=== PATIENT | male | born 1990 | race Caucasian/White ===

== ENCOUNTER 2017-03-08 01:38 | Emergency (ER) | payer OTHER, BC ==
--- NOTE | 2017-03-08 22:59 | ER ---
ADMIT: 03/08/2017 RM/LOC: ER [facility] MR#: [id number] [id number] [place], [place] [id number] LATA SHYA S JACOB [address], [place] [id number] Emergency Room Report SEX: M AGE: 26 : 1990 DATE: 03/08/2017 TIME: 0138 hours. Please refer to my T-sheet for complete H and P. HISTORY OF PRESENT ILLNESS: Briefly, the patient is a 26-year-old, who said yesterday hurt his arm while at work, works at [employer] He does a lot of pulling where it has been hurting up in his left biceps area. No other complaints. PHYSICAL EXAMINATION: He has pain over the insertion of his proximal biceps. No evidence of rupture. Neurovascularly intact distally. EMERGENCY DEPARTMENT COURSE: I placed him in a sling. I had a long discussion. He was ready for discharge. ASSESSMENT: Left acute bicipital muscle strain. PLAN: Rest ice, elevate, Motrin, light duty for couple 3 days. Follow up with Dr. Garcia. Jeorme Dill MD/ aidan JOB #: [id number] CC: Jerome Dill MD, Attending Physician Esdras Garcia MD, Family Physician
== END 2017-03-08 02:20 | disposition home or self-care (01) ==
LOC: ER 01:38
DX: S46.212A Strain of muscle, fascia and tendon of other parts of biceps, left arm, initial encounter (principal); X50.9XXA Other and unspecified overexertion or strenuous movements or postures, initial encounter; Y99.0 Civilian activity done for income or pay